=== PATIENT | male | born 1990 | race Two or more races ===

== ENCOUNTER 2017-04-27 12:28 | Emergency (ER) | payer SELFPAY ==
[2017-04-27] MEDS: DIPHTH,PERTUSS(ACELL),TET TOX 0.5 ML DISP.SYRIN. VAX IM ×2 (13:50)
== END 2017-04-27 13:56 | disposition home or self-care (01) ==
LOC: ER 12:28
DX: S61.210A Laceration without foreign body of right index finger without damage to nail, initial encounter (principal); Z23 Encounter for immunization; W26.8XXA Contact with other sharp object(s), not elsewhere classified, initial encounter; Y93.89 Activity, other specified; Y92.89 Other specified places as the place of occurrence of the external cause; Y99.8 Other external cause status
CPT/HCPCS: 90471; 90715; 99283